=== PATIENT | female | born 1975 | race Caucasian/White ===

== ENCOUNTER 2017-01-21 12:09 | Emergency (ER) | payer MEDICARE, MEDICAID ==
[2017-01-21 15:01] VITALS: BP 150/90
--- NOTE | 2017-01-21 15:27 | UC ---
Respiratory Complaint HPI - HPI Summary HPI Summary: 50 yo female with a hx of htn and asthma presents with a greater than one month hx of nasal congestion and post nasal drip now with a 4-5 day hx of cough/wheezing and reliance on her rescue inhaler no f/c no n/v/d no CP no hx DM - History of Current Complaint Chief Complaint: UCGeneralIllness Stated Complaint: throat,sinuses,congestion Time Seen by Provider: 01/21/17 15:07 Hx Obtained From: Patient Hx Last Menstrual Period: 01/18/17 Onset/Duration: Gradual Onset, Lasting Weeks, Worse Since - past few days Timing: Constant Severity Initially: Mild Severity Currently: Moderate Pain Intensity: 3 Pain Scale Used: 0-10 Numeric Character: Cough: Nonproductive Aggravating Factors: Nothing Alleviating Factors: Nothing Associated Signs And Symptoms: Positive: Wheezing, URI, Nasal Congestion, Sinus Discomfort - Allergies/Home Medications Allergies/Adverse Reactions: Allergies Allergy/AdvReac Type Severity Reaction Status Date / Time Clindamycin Allergy Rash, Verified 01/21/17 14:55 breathing issues Doxycycline AdvReac GI Verified 01/21/17 14:55 environmental allergies Allergy See Comment Uncoded 01/21/17 14:55 Home Medications: Home Medications Amlodipine Besylate [Norvasc] 2.5 mg PO DAILY 01/21/17 [History Confirmed ] Pseudoephedrine-Guaifenesin [Mucinex D 60-600 mg] 1 tab PO BID PRN 01/21/17 [ History Confirmed 01/21/17] PMH/Surg Hx/FS Hx/Imm Hx Endocrine History Of: Reports: Thyroid Disease - Hypothyroidism Denies: Diabetes Cardiovascular History Of: Denies: Cardiac Disorders, Hypertension Respiratory History Of: Reports: Asthma, Bronchitis Denies: COPD GI/ History Of: Denies: Ulcer - Surgical History Surgical History: Yes Surgery Procedure, Year, and Place: Sinus, 2007, [facility]. Cholecystectomy, 2004, [facility]. T&A, 1986, [facility] - Family History Known Family History: Positive: Unknown - unknow MOMs side (her mom was adopted) , Hypertension, Diabetes Negative: Respiratory Disease - Social History Alcohol Use: None Substance Use Type: None Smoking Status (MU): Never Smoked Tobacco Review of Systems Constitutional: Negative Skin: Negative Eyes: Negative ENT: Nasal Discharge Respiratory: Cough Cardiovascular: Negative Gastrointestinal: Negative Genitourinary: Negative Motor: Negative Neurovascular: Negative Musculoskeletal: Negative Neurological: Negative Psychological: Negative All Other Systems Reviewed And Are Negative: Yes Physical Exam Triage Information Reviewed: Yes Appearance: Well-Appearing, No Pain Distress, Well-Nourished, Other: - BMI 66 Vital Signs: Initial Vital Signs Temp 98.3 F 01/21/17 14:48 Pulse 88 01/21/17 14:48 Resp 16 01/21/17 14:48 BP 150/90 01/21/17 14:48 Pulse Ox 100 01/21/17 14:48 Vital Signs Reviewed: Yes Eyes: Positive: Conjunctiva Clear ENT: Positive: Hearing grossly normal, Nasal congestion, Nasal drainage, TMs normal, Other: - bilateral max sinus tenderness. Negative: Tonsillar exudate, Trismus Neck exam: Normal Respiratory: Positive: Lungs clear, Normal breath sounds, No respiratory distress, No accessory muscle use, Other: - some wheezes with forced expiration Cardiovascular: Positive: RRR, No Murmur. Negative: Tachycardia, Bradycardia Musculoskeletal: Positive: ROM Intact Neurological: Positive: Alert, Muscle Tone Normal Psychological Exam: Normal Skin Exam: Normal UC Diagnostic Evaluation - Laboratory O2 Sat by Pulse Oximetry: 100 - normal/not hypoxic Respiratory Course/Dx - Differential Dx/Diagnosis Provider Diagnoses: acute bronchitis. acute sinusitis Discharge - Discharge Plan Condition: Stable Disposition: HOME Prescriptions: Cefuroxime Axetil [Ceftin 250 MG] 250 mg PO BID #20 tab Fluconazole 150 MG (NF) [Diflucan 150 mg (NF)] 150 mg PO ONCE #1 tab Prednisone [Deltasone] 40 mg PO DAILY #10 tab Patient Education Materials: Sinusitis (ED), Acute Bronchitis (ED) Referrals: MARKUS Oreilly [Primary Care Provider] - 1 Week (recheck bp in 1-2 weeks) Additional Instructions: recheck for new or worsening symptoms
== END 2017-01-21 15:33 | disposition home or self-care (01) ==
LOC: UCCORT 12:09
DX: J20.9 Acute bronchitis, unspecified (principal); J01.90 Acute sinusitis, unspecified; Z88.1 Allergy status to other antibiotic agents; Z90.49 Acquired absence of other specified parts of digestive tract
CPT/HCPCS: 99212; G0463

== ENCOUNTER 2017-04-05 14:25 | Emergency (ER) | payer MEDICARE, MEDICAID ==
--- NOTE | 2017-04-05 14:50 | UC ---
Abdominal Pain Female HPI - HPI Summary HPI Summary: 41 F with abd pain since 04/02/17. Pt can feel an umbilical hernia, a hard lump at her umbilicus. States it gives pain across her entire lower abd, and makes her nauseous. No vomiting. No fever. No urinary symptoms. Pt states she is not having intercourse with anyone and her LMP was 03/19/17 and was normal for her. Pt is undergoing evaluation with Dr. Reddy for obesity surgery. - History of Current Complaint Stated Complaint: ABD PAIN Time Seen by Provider: 04/05/17 14:48 Hx Obtained From: Patient Hx Last Menstrual Period: 03/07/16 ?: No Onset/Duration: Gradual Onset, Lasting Days, Still Present Timing: Constant Severity Initially: Moderate Pain Intensity: 7 Pain Scale Used: 0-10 Numeric Location: Other - umbilical and diffuse lower abd Radiates: No Character: Aching Aggravating Factor(s): Nothing Alleviating Factor(s): Nothing Associated Signs and Symptoms: Negative: Fever, Back Pain, Urinary Symptoms, Vaginal Bleeding, Vaginal Discharge, Nausea, Vomiting, Diarrhea - Risk Factors Ectopic Risk Factor: Negative Ovarian Torsion Risk Factor: Reproductive Age Allergies/Adverse Reactions: Allergies Allergy/AdvReac Type Severity Reaction Status Date / Time Clindamycin Allergy Rash, Verified 04/05/17 14:52 breathing issues Doxycycline AdvReac GI Verified 04/05/17 14:52 environmental allergies Allergy See Comment Uncoded 01/21/17 14:55 PMH/Surg Hx/FS Hx/Imm Hx Previously Healthy: No - morbid obesity GI/ History: Gall Bladder Disease - s/p kel - Surgical History Surgical History: Yes Surgery Procedure, Year, and Place: Sinus, 2007, [facility]. Cholecystectomy, 2004, [facility]. T&A, 1986, [facility] - Family History Known Family History: Positive: Unknown - unknow MOMs side (her mom was adopted) , Hypertension, Diabetes Negative: Respiratory Disease - Social History Lives: With Family Alcohol Use: None Substance Use Type: None Smoking Status (MU): Never Smoked Tobacco Review of Systems Constitutional: Negative Skin: Negative Eyes: Negative ENT: Negative Respiratory: Negative Cardiovascular: Negative Gastrointestinal: Abdominal Pain Genitourinary: Negative Motor: Negative Neurovascular: Negative Musculoskeletal: Negative Neurological: Negative Psychological: Negative All Other Systems Reviewed And Are Negative: Yes Physical Exam Triage Information Reviewed: Yes Appearance: Ill-Appearing, Pain Distress, Obese Vital Signs: elevated BP noted Vital Signs Reviewed: Yes ENT: Positive: Hearing grossly normal. Negative: Muffled/hoarse voice Neck: Positive: Supple Respiratory: Positive: Lungs clear, Normal breath sounds, No respiratory distress Cardiovascular: Positive: RRR, No Murmur, Pulses Normal, Brisk Capillary Refill Abdomen Description: Positive: Soft, Hernia @ - umbilicus, reducible, Other: - tender at umbilicus with mass protruding. Mass is reducible, but is painful on palp and protrudes even with pt in supine position with deep breaths. Negative : CVA Tenderness (R), CVA Tenderness (L), Distended, Guarding, McBurney's Point Tenderness, Peritoneal Signs, Pulsatile Mass Bowel Sounds: Positive: Present Musculoskeletal: Positive: Strength Intact, ROM Intact Neurological: Positive: Alert, Muscle Tone Normal Psychological Exam: Normal Skin Exam: Normal Abd Pain Female Course/Dx - Course Course Of Treatment: pt needs higher level of care for evaluation of painful, reducible umbilical hernia causing nausea. - Differential Dx/Diagnosis Differential Diagnosis: Bowel Obstruction, Other - hernia, strangulated hernia Provider Diagnoses: abdominal pain. morbid obesity. umbilical hernia Discharge - Discharge Plan Condition: Stable Disposition: AGAINST MEDICAL ADVICE Referrals: MARKUS Oreilly [Primary Care Provider] -
[2017-04-05 15:25] VITALS: BP 145/89
== END 2017-04-05 15:32 | disposition left against medical advice (07) ==
LOC: UCCORT 14:25
DX: R10.30 Lower abdominal pain, unspecified (principal); E66.01 Morbid (severe) obesity due to excess calories; K42.9 Umbilical hernia without obstruction or gangrene; Z88.1 Allergy status to other antibiotic agents
CPT/HCPCS: 81003; 99212; G0463

== ENCOUNTER 2017-04-05 16:27 | Emergency (ER) | payer MEDICARE, MEDICAID ==
[2017-04-05] MEDS ORDERED: NS 0.9% 1000 ML* 1,000 ML IV ONE (19:52)
[2017-04-05] MEDS ORDERED: Ondansetron INJ* 2 MG/ML VIAL IV ONE (19:52)
[2017-04-05 20:21] LABS: Urine Bacteria Absent (Absent); Urine Bilirubin Negative (Negative); Urine Glucose Negative (Negative); Urine Nitrite Negative (Negative)
[2017-04-05 20:34] LABS: Hematocrit 41 % (35-47); Hemoglobin 13.4 g/dl (12.0-16.0); Mean Corpuscular HGB Conc 33 g/dl (31-36); Mean Corpuscular Hemoglobin 27 pg (27-31); Mean Corpuscular Volume 84 fL (80-97); Mean Platelet Volume 9 um3 (7.4-10.4); Red Blood Count 4.88 10^6/ul (4.0-5.4); Red Cell Distribution Width 14 % (10.5-15); White Blood Count 9.8 10^3/ul (3.5-10.8)
[2017-04-05 20:50] LABS: ALT 13 U/L (7-52); AST 11 U/L (13-39); Albumin 3.6 g/dL (3.2-5.2); Alkaline Phosphatase 67 U/L (34-104); Anion Gap 8 mmol/L (2-11); BUN/Creatinine Ratio 9.1 (8-20); Blood Urea Nitrogen 7 mg/dL (6-24); C Reactive Protein 8.53 mg/L (< 5.00); CO2 Carbon Dioxide 26 mmol/L (22-32); Chloride 103 mmol/L (101-111); EGFR African American 106.8 (>60); Globulin 2.5 g/dL (2-4); Glucose 96 mg/dL (70-100); Lipase < 10 U/L (11.0-82.0); Potassium 3.6 mmol/L (3.5-5.0); Sodium 137 mmol/L (133-145); Total Protein 6.1 g/dL (6.4-8.9)
[2017-04-05] MEDS ORDERED: Iohexol 300* (CONTRAST) 10 ML SDV IV ONE (22:09)
--- NOTE | 2017-04-05 22:50 | RAD ---
Indication: Umbilical hernia. Contrast: Administered 150.0 ml of OMNIPAQUE 300 mgi/ml CT of the abdomen and pelvis was performed after oral and IV contrast administration. The lung bases demonstrate no pleural fluid, nodules or masses. Heart is of normal size without evidence of pericardial effusion. Liver is normal in size. No focal lesions or intrahepatic ductal dilatation is noted. Patient is status post cholecystectomy. The pancreas demonstrates no mass or pancreatic duct dilatation. The spleen is normal in size. No adrenal lesions are noted. The kidneys demonstrate no hydronephrosis. No focal lesions are noted. Aorta and inferior vena cava are unremarkable. No dilated loops of bowel are noted. Contrast is noted in the colon. No bowel obstruction is noted. Periumbilical hernia is noted containing omentum. No evidence of infiltration of fat is noted. No small bowel herniation is noted. No hernias are otherwise noted in the inguinal region. The [place] bladder is unremarkable. IMPRESSION: Periumbilical hernia containing fat and omentum without evidence of abscess. No other masses or fluid collections are noted. No evidence of bowel obstruction is noted.
[2017-04-05] MEDS ORDERED: Ondansetron ODT TAB* 4 MG PO ONE (23:30)
[2017-04-05] MEDS ORDERED: HYDROcodone/ACETAMIN 5-325 MG* 1 TAB PO ONE (23:30)
--- NOTE | 2017-04-05 23:36 | ED ---
Te Islas Alok, scribed for Jacqueline Brewer MD on 04/05/17 at 1940 . Abdominal Pain/Female - HPI Summary HPI Summary: 41F presents with suprapubic abd pain described as cramping radiating to the LLQ and RLQ for the past 4 days. Pt notes a hernia at her suprapubic region with pain. Pt also notes nausea for the past 4 days and diarrhea since today. Pt denies fever or dysuria. Her LMP was on 03/24/17. PMHx includes HTN, GERD, and hyperthyroid. PSHx includes cholecystectomy. - History of Current Complaint Chief Complaint: EDAbdPain Stated Complaint: HERNIA PAIN Time Seen by Provider: 04/05/17 19:12 Hx Obtained From: Patient Hx Last Menstrual Period: 03/07/16 ?: No Onset/Duration: Lasting Days, Still Present Timing: Constant Severity Initially: Moderate Severity Currently: Moderate Pain Intensity: 7 Pain Scale Used: 0-10 Numeric Location: Suprapubic Radiates: Yes Radiates to: LLQ, RLQ Character: Cramping Aggravating Factor(s): Nothing Alleviating Factor(s): Nothing Associated Signs and Symptoms: Positive: Nausea, Diarrhea. Negative: Fever, Urinary Symptoms, Vomiting Allergies/Adverse Reactions: Allergies Allergy/AdvReac Type Severity Reaction Status Date / Time Clindamycin Allergy Rash, Verified 04/05/17 14:52 breathing issues Doxycycline AdvReac GI Verified 04/05/17 14:52 environmental allergies Allergy See Comment Uncoded 01/21/17 14:55 PMH/Surg Hx/FS Hx/Imm Hx Endocrine/Hematology History: Reports: Hx Thyroid Disease Denies: Hx Diabetes Cardiovascular History: Reports: Hx Hypertension Respiratory History: Reports: Hx Asthma Denies: Hx Chronic Obstructive Pulmonary Disease (COPD) GI History: Denies: Hx Ulcer - Surgical History Surgery Procedure, Year, and Place: Sinus, 2007, [facility]. Cholecystectomy, 2004, [facility]. T&A, 1986, [facility] Infectious Disease History: No Infectious Disease History: Denies: Hx Clostridium Difficile, Hx Hepatitis, Hx Human Immunodeficiency Virus (HIV), Hx of Known/Suspected MRSA, Hx Shingles, Hx Tuberculosis, Hx Known/ Suspected VRE, Hx Known/Suspected VRSA, History Other Infectious Disease, Traveled Outside the [place] in Last 30 Days - Family History Known Family History: Positive: Hypertension, Diabetes Negative: Respiratory Disease - Social History Occupation: Employed Full-time Lives: With Family Alcohol Use: None Substance Use Type: Reports: None Smoking Status (MU): Never Smoked Tobacco Review of Systems Negative: Fever Positive: Abdominal Pain, Diarrhea, Nausea. Negative: Vomiting Negative: dysuria All Other Systems Reviewed And Are Negative: Yes Physical Exam Triage Information Reviewed: Yes Vital Signs On Initial Exam: Initial Vitals Temp Pulse Resp BP Pulse Ox 97.3 F 95 20 161/96 98 04/05/17 16:35 04/05/17 16:35 04/05/17 16:35 04/05/17 16:35 04/05/17 16:35 Vital Signs Reviewed: Yes Appearance: Positive: Well-Appearing, No Pain Distress Skin: Positive: Warm, Skin Color Reflects Adequate Perfusion, Dry Eyes: Positive: EOMI, YOHAN ENT: Positive: Pharynx normal, TMs normal Neck: Positive: Supple, Nontender Respiratory/Lung Sounds: Positive: Clear to Auscultation, Breath Sounds Present. Negative: Rales, Rhonchi, Wheezes Cardiovascular: Positive: RRR, Other - no gallop. Negative: Murmur, Rub Abdomen Description: Positive: Soft, Other: - diffuse abd pain Bowel Sounds: Positive: Present Musculoskeletal: Positive: Strength/ROM Intact. Negative: Edema Left, Edema Right Neurological: Positive: Sensory/Motor Intact, Alert, Oriented to Person Place, Time, CN Intact II-III Psychiatric: Positive: Affect/Mood Appropriate - Edie Coma Scale Coma Scale Total: 15 Diagnostics - Vital Signs Vital Signs Temp Pulse Resp BP Pulse Ox 04/05/17 18:03 98.3 F 92 20 140/100 97 04/05/17 16:38 97.6 F 89 20 161/96 100 04/05/17 16:35 97.3 F 95 20 161/96 98 - Laboratory Lab Results: Lab Results 04/05/17 04/05/17 04/05/17 Range/Units 20:01 20:01 20:27 WBC 9.8 (3.5-10.8) 10^3/ul RBC 4.88 (4.0-5.4) 10^6/ul Hgb 13.4 (12.0-16.0) g/dl Hct 41 (35-47) % MCV 84 (80-97) fL MCH 27 (27-31) pg MCHC 33 (31-36) g/dl RDW 14 (10.5-15) % Plt Count 408 (150-450) 10^3/ul MPV 9 (7.4-10.4) um3 Neut % (Auto) 61.0 (38-83) % Lymph % (Auto) 27.1 (25-47) % Tillman % (Auto) 7.9 (1-9) % Eos % (Auto) 2.8 (0-6) % Baso % (Auto) 1.2 (0-2) % Absolute Neuts (auto) 5.9 (1.5-7.7) 10^3/ul Absolute Lymphs (auto) 2.6 (1.0-4.8) 10^3/ul Absolute Monos (auto) 0.8 (0-0.8) 10^3/ul Absolute Eos (auto) 0.3 (0-0.6) 10^3/ul Absolute Basos (auto) 0.1 (0-0.2) 10^3/ul Absolute Nucleated RBC 0 10^3/ul Nucleated RBC % 0 Sodium (133-145) mmol/L Potassium (3.5-5.0) mmol/L Chloride (101-111) mmol/L Carbon Dioxide (22-32) mmol/L Anion Gap (2-11) mmol/L BUN (6-24) mg/dL Creatinine (0.51-0.95) mg/dL Est GFR ( Amer) (>60) Est GFR (Non-Af Amer) (>60) BUN/Creatinine Ratio (8-20) Glucose (70-100) mg/dL Lactic Acid 1.6 (0.5-2.0) mmol/L Calcium (8.6-10.3) mg/dL Total Bilirubin (0.2-1.0) mg/dL AST (13-39) U/L ALT (7-52) U/L Alkaline Phosphatase (34-104) U/L C-Reactive Protein (< 5.00) mg/L Total Protein (6.4-8.9) g/dL Albumin (3.2-5.2) g/dL Globulin (2-4) g/dL Albumin/Globulin Ratio (1-3) Lipase (11.0-82.0) U/L Urine Color Straw Urine Appearance Clear Urine pH 6.0 (5-9) Ur Specific [place] 1.003 L (1.010-1.030) Urine Protein Negative (Negative) Urine Ketones Negative (Negative) Urine Blood Negative (Negative) Urine Nitrate Negative (Negative) Urine Bilirubin Negative (Negative) Urine Urobilinogen Negative (Negative) Ur Leukocyte Esterase Negative (Negative) Urine WBC (Auto) Trace(0-5/hpf) (Absent) Urine RBC (Auto) Trace(0-2/hpf) (Absent) Ur Squamous Epith Cells Present H (Absent) Urine Bacteria Absent (Absent) Urine Glucose Negative (Negative) 04/05/17 Range/Units 20:27 WBC (3.5-10.8) 10^3/ul RBC (4.0-5.4) 10^6/ul Hgb (12.0-16.0) g/dl Hct (35-47) % MCV (80-97) fL MCH (27-31) pg MCHC (31-36) g/dl RDW (10.5-15) % Plt Count (150-450) 10^3/ul MPV (7.4-10.4) um3 Neut % (Auto) (38-83) % Lymph % (Auto) (25-47) % Tillman % (Auto) (1-9) % Eos % (Auto) (0-6) % Baso % (Auto) (0-2) % Absolute Neuts (auto) (1.5-7.7) 10^3/ul Absolute Lymphs (auto) (1.0-4.8) 10^3/ul Absolute Monos (auto) (0-0.8) 10^3/ul Absolute Eos (auto) (0-0.6) 10^3/ul Absolute Basos (auto) (0-0.2) 10^3/ul Absolute Nucleated RBC 10^3/ul Nucleated RBC % Sodium 137 (133-145) mmol/L Potassium 3.6 (3.5-5.0) mmol/L Chloride 103 (101-111) mmol/L Carbon Dioxide 26 (22-32) mmol/L Anion Gap 8 (2-11) mmol/L BUN 7 (6-24) mg/dL Creatinine 0.77 (0.51-0.95) mg/dL Est GFR ( Amer) 106.8 (>60) Est GFR (Non-Af Amer) 83.0 (>60) BUN/Creatinine Ratio 9.1 (8-20) Glucose 96 (70-100) mg/dL Lactic Acid (0.5-2.0) mmol/L Calcium 9.0 (8.6-10.3) mg/dL Total Bilirubin 0.60 (0.2-1.0) mg/dL AST 11 L (13-39) U/L ALT 13 (7-52) U/L Alkaline Phosphatase 67 (34-104) U/L C-Reactive Protein 8.53 H (< 5.00) mg/L Total Protein 6.1 L (6.4-8.9) g/dL Albumin 3.6 (3.2-5.2) g/dL Globulin 2.5 (2-4) g/dL Albumin/Globulin Ratio 1.4 (1-3) Lipase < 10 L (11.0-82.0) U/L Urine Color Urine Appearance Urine pH (5-9) Ur Specific [place] (1.010-1.030) Urine Protein (Negative) Urine Ketones (Negative) Urine Blood (Negative) Urine Nitrate (Negative) Urine Bilirubin (Negative) Urine Urobilinogen (Negative) Ur Leukocyte Esterase (Negative) Urine WBC (Auto) (Absent) Urine RBC (Auto) (Absent) Ur Squamous Epith Cells (Absent) Urine Bacteria (Absent) Urine Glucose (Negative) Result Diagrams: 04/05/17 20:27 04/05/17 20:27 Lab Statement: Any lab studies that have been ordered have been reviewed, and results considered in the medical decision making process. - CT abd/pel CT CT Interpretation: Positive (See Comments) - IMPRESSION: Periumbilical hernia containing fat and omentum without evidence of abscess. No other masses or fluid collections are noted. No evidence of bowel obstruction is noted. CT Interpretation Completed By: Radiologist Abdominal Pain Fem Course/Dx - Course Course Of Treatment: 41 yo morbidly obese pt with diffuse abd pain and new umbilical hernia, labs neg and ct shows reducible hernia followup with surgery as an outpt - Diagnoses Provider Diagnoses: Umbilical hernia, Abdominal pain Discharge - Discharge Plan Condition: Stable Disposition: HOME Prescriptions: HYDROcodone/ACETAMIN 5-325 MG* [[place] 5-325 TAB*] 1 tab PO Q8H PRN #7 tab MDD 3 PRN Reason: Pain HYDROcodone/ACETAMIN 5-325 MG* [[place] 5-325 TAB*] 1 tab PO Q8H PRN #7 tab MDD 3 PRN Reason: Pain Ondansetron ODT TAB* [Zofran 4 MG Odt TAB*] 4 mg PO Q8H PRN #14 tab.odt PRN Reason: Nausea Referrals: Renan EnglishRenan [Primary Care Provider] - The documentation as recorded by the Te brooks Alok accurately reflects the service I personally performed and the decisions made by , Jacqueline Brewer MD.
[2017-04-05 23:46] VITALS: BP 149/88
== END 2017-04-05 23:45 | disposition home or self-care (01) ==
LOC: ED 16:27
DX: K42.9 Umbilical hernia without obstruction or gangrene (principal); R10.84 Generalized abdominal pain; R11.0 Nausea; R19.7 Diarrhea, unspecified
CPT/HCPCS: 36415; 74177; 80053; 81003; 83605; 83690; 85025; 86140; 96374; 99283; A9270-GY; J2405; Q9967

== ENCOUNTER 2017-07-03 15:05 | Emergency (ER) | payer MEDICARE, MEDICAID ==
[2017-07-03 15:33] VITALS: BP 150/75
--- NOTE | 2017-07-03 15:54 | UC ---
Complaint Female HPI - HPI Summary HPI Summary: urinary burning and frequency x 2 days no fever, no chills, no flank pain - History Of Current Complaint Chief Complaint: UCGU Stated Complaint: URINARY Time Seen by Provider: 07/03/17 15:41 Hx Obtained From: Patient Hx Last Menstrual Period: 06/26/17 ?: No Onset/Duration: Gradual Onset, Lasting Days - 2, Still Present Timing: Constant Severity Initially: Moderate Severity Currently: Moderate Character: Burning Aggravating Factor(s): Urination Alleviating Factor(s): Nothing Associated Signs And Symptoms: Negative: Fever, Back Pain, Vaginal Bleeding/ Discharge, Vaginal Discharge, Nausea, Vomiting(# Of Episodes =), Genital Swelling, Genital Blisters, Retained [place] Body (Specify) - Allergies/Home Medications Allergies/Adverse Reactions: Allergies Allergy/AdvReac Type Severity Reaction Status Date / Time Clindamycin Allergy Rash, Verified 07/03/17 15:27 breathing issues Doxycycline AdvReac GI Verified 07/03/17 15:27 environmental allergies Allergy See Comment Uncoded 07/03/17 15:27 PMH/Surg Hx/FS Hx/Imm Hx Endocrine History: Hypothyroidism Cardiovascular History: Hypertension - Surgical History Surgical History: Yes Surgery Procedure, Year, and Place: Sinus, 2007, [facility]. Cholecystectomy, 2004, [facility]. T&A, 1986, [facility] - Family History Known Family History: Positive: Unknown - unknow MOMs side (her mom was adopted) , Hypertension, Diabetes Negative: Respiratory Disease - Social History Alcohol Use: None Substance Use Type: None Smoking Status (MU): Never Smoked Tobacco Review of Systems Constitutional: Negative Skin: Negative Eyes: Negative ENT: Negative Respiratory: Negative Genitourinary: Dysuria, Frequency, Urgency All Other Systems Reviewed And Are Negative: Yes Physical Exam Triage Information Reviewed: Yes Appearance: Well-Appearing, No Pain Distress, Obese Vital Signs: Initial Vital Signs Temp 98.1 F 07/03/17 15:29 Pulse 91 07/03/17 15:29 Resp 20 07/03/17 15:29 BP 150/75 07/03/17 15:29 Pulse Ox 100 07/03/17 15:29 Vital Signs Reviewed: Yes Eyes: Positive: Conjunctiva Clear ENT: Positive: Normal ENT inspection, Hearing grossly normal, Pharynx normal Neck: Positive: Supple, Nontender Respiratory: Positive: Chest non-tender, Lungs clear, Normal breath sounds Cardiovascular: Positive: RRR, No Murmur, Pulses Normal Abdominal Exam: Normal Abdomen Description: Positive: Nontender, Soft. Negative: CVA Tenderness (R), CVA Tenderness (L), Distended, Guarding Bowel Sounds: Positive: Present Skin Exam: Normal Complaint Female Dx - Differential Dx/Diagnosis Provider Diagnoses: UTI Discharge - Discharge Plan Condition: Stable Disposition: HOME Prescriptions: Sulfamethox/Trimethoprim DS* [Bactrim DS 800/160 TAB*] 1 tab PO BID #14 tab Patient Education Materials: Urinary Tract Infection in Women (ED) Referrals: MARKUS Oreilly [Primary Care Provider] - If Needed
--- NOTE | 2017-07-06 07:10 | UC ---
Progress - Progress Note Progress Note: notify pt of results if not better should get rechecked may continue antibiotic until finished
== END 2017-07-03 15:58 | disposition home or self-care (01) ==
LOC: UCCORT 15:05
DX: N39.0 Urinary tract infection, site not specified (principal); I10 Essential (primary) hypertension; E03.9 Hypothyroidism, unspecified; Z88.3 Allergy status to other anti-infective agents
CPT/HCPCS: 81003; 87086; 99212; G0463

== ENCOUNTER 2017-11-03 10:56 | Emergency (ER) | payer MEDICARE, MEDICAID ==
[2017-11-03 11:46] VITALS: BP 156/85
--- NOTE | 2017-11-03 12:11 | UC ---
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 Pt c/o 2-3 weeks of "feeling cruddy", sinus pain/pressure, productive cough w/ green phelgm, congestion and felt fever/chills. States sx have gotten worse last 24 hrs. Taking sudafed, mucinex and ibuprofen prn. " -has had sinus suregry. has had many sinus infections and sx are consistent. unable to take home temp. +asthma hx. used to need daily steroid but was d/c'd as no longer needed. has nebulizer at home. only needs alb prn. no known fevers. amox works well for her. requests diflucan for common cause. - History of Current Complaint Chief Complaint: UCRespiratory Stated Complaint: COUGH Time Seen by Provider: 11/03/17 11:42 Hx Last Menstrual Period: 06/26/17 - Allergies/Home Medications Allergies/Adverse Reactions: Allergies Allergy/AdvReac Type Severity Reaction Status Date / Time Clindamycin Allergy Rash, Verified 11/03/17 11:39 breathing issues Doxycycline AdvReac GI Verified 11/03/17 11:39 environmental allergies Allergy See Comment Uncoded 11/03/17 11:39 Home Medications: Home Medications Famotidine TAB* [Pepcid 20 MG TAB*] 1 tab DAILY 11/03/17 [History Confirmed 04/15] PMH/Surg Hx/FS Hx/Imm Hx Previously Healthy: Yes Endocrine History: Hypothyroidism Respiratory History: Asthma - Surgical History Surgical History: Yes Surgery Procedure, Year, and Place: Sinus, 2007, [facility]. Cholecystectomy, 2004, [facility]. T&A, 1986, [facility] - Family History Known Family History: Positive: Unknown - unknow MOMs side (her mom was adopted) , Hypertension, Diabetes Negative: Respiratory Disease - Social History Alcohol Use: None Substance Use Type: None Smoking Status (MU): Never Smoked Tobacco - Immunization History Most Recent Influenza Vaccination: 2017 Review of Systems Constitutional: Chills Skin: Negative Eyes: Negative ENT: Sore Throat, Ear Ache, Nasal Discharge, Sinus Congestion, Sinus Pain/ Tenderness Respiratory: Cough, Other - wheezing Cardiovascular: Negative Gastrointestinal: Negative Genitourinary: Negative Motor: Negative Neurovascular: Negative Musculoskeletal: Negative Neurological: Negative Psychological: Negative Is Patient Immunocompromised?: No All Other Systems Reviewed And Are Negative: Yes Physical Exam Triage Information Reviewed: Yes Appearance: Well-Appearing, No Pain Distress, Ill-Appearing - mildly Vital Signs: Initial Vital Signs Temp 98.2 F 11/03/17 11:41 Pulse 81 11/03/17 11:41 Resp 18 11/03/17 11:41 BP 156/85 11/03/17 11:41 Pulse Ox 100 11/03/17 11:41 Vital Signs Reviewed: Yes Eye Exam: Normal ENT: Positive: Pharyngeal erythema - +PND, Nasal congestion, TMs normal, Sinus tenderness. Negative: TM bulging, TM dull, TM red, Tonsillar exudate Dental Exam: Normal Neck exam: Normal Neck: Positive: Supple, Nontender, No Lymphadenopathy Respiratory: Positive: No respiratory distress, No accessory muscle use, Decreased breath sounds, Wheezing - b/l expiratory bases. Negative: Crackles, Rhonchi, Stridor Cardiovascular Exam: Normal Cardiovascular: Positive: RRR, No Murmur, Pulses Normal Abdomen Description: Positive: Nontender, Soft Musculoskeletal Exam: Normal Neurological Exam: Normal Psychological Exam: Normal Skin Exam: Normal UC Diagnostic Evaluation - Laboratory O2 Sat by Pulse Oximetry: 100 Respiratory Course/Dx - Course Course Of Treatment: BP elevated today b/c of illness and also taking cold medication. - Differential Dx/Diagnosis Differential Diagnosis/HQI/PQRI: Asthma, Bronchitis, Sinusitis Provider Diagnoses: Sinusitis, asthmatic bronchitis Discharge - Discharge Plan Condition: Stable Disposition: HOME Prescriptions: Albuterol 2.5MG/3ML (0.083%)* [Ventolin 2.5 MG/3 ML NEB.JULY*] 2.5 mg INH Q4H PRN #1 box PRN Reason: cough or wheezing Albuterol 2.5MG/3ML (0.083%)* [Ventolin 2.5 MG/3 ML NEB.JULY*] 2.5 mg INH Q4H #1 neb.july Amoxicillin PO (*) [Amoxicillin 875 MG (*)] 875 mg PO BID #20 tab Fluconazole [Diflucan] 150 mg PO ONCE #1 tab Methylprednisolone [Medrol Dosepak 4 MG*] 4 mg PO DAILY #1 jacob Patient Education Materials: Asthma (ED), Sinusitis (ED), Acute Bronchitis (ED) Referrals: MARKUS Oreilly [Primary Care Provider] - 5 Days Additional Instructions: -Make sure to take a probiotic daily while on antibiotics to help prevent a potential complication of antibiotic use called c diff. Some well known brands that can be found OTC are florastor, align and colon health. Make sure to complete the entire prescription unless advised otherwise by your health care provider. -Make sure to take a probiotic daily while on antibiotics to help prevent a potential complication of antibiotic use called c diff. Some well known brands that can be found OTC are florastor, align and colon health. Make sure to complete the entire prescription unless advised otherwise by your health care provider.
== END 2017-11-03 12:28 | disposition home or self-care (01) ==
LOC: UCCORT 10:56
DX: J32.9 Chronic sinusitis, unspecified (principal); J45.909 Unspecified asthma, uncomplicated
CPT/HCPCS: 99212; G0463

== ENCOUNTER 2017-12-07 14:20 | Emergency (ER) | payer MEDICARE, MEDICAID ==
[2017-12-07 16:36] VITALS: BP 128/86
[2017-12-07] MEDS ORDERED: Albuterol 2.5 MG/3 ML NEB.SOL* (0.083%) INH ONE (16:46)
[2017-12-07] MEDS ORDERED: Ipratropium 0.5MG/2.5ML NEB* 0.5 MG/2.5 ML NEB.SOLN INH ONE (16:46)
--- NOTE | 2017-12-07 17:00 | UC ---
Respiratory Complaint HPI - HPI Summary HPI Summary: 42 yo female with progressively worsening cough and wheeze x 1 week hx asthma sputum is green has had chills no cp or sob no n/v/d - History of Current Complaint Chief Complaint: UCGeneralIllness Stated Complaint: SINUS, UPPER RESP COMPLAINTS Time Seen by Provider: 12/07/17 16:35 Hx Obtained From: Patient Hx Last Menstrual Period: 12/01/17 Onset/Duration: Sudden Onset, Lasting Days Timing: Constant Severity Initially: Mild Severity Currently: Moderate Pain Intensity: 0 Pain Scale Used: 0-10 Numeric Character: Cough: Productive, Sputum Description: - green Aggravating Factors: Allergens, Recumbent Position Alleviating Factors: Bronchodilator Associated Signs And Symptoms: Positive: Wheezing, Nasal Congestion, Sinus Discomfort Related History: Similar Episode/Dx as: - bronchitis - Allergies/Home Medications Allergies/Adverse Reactions: Allergies Allergy/AdvReac Type Severity Reaction Status Date / Time clindamycin Allergy See Comment Verified 12/07/17 16:25 doxycycline Allergy GI Upset Verified 12/07/17 16:25 environmental allergies Allergy See Comment Uncoded 12/07/17 16:25 Home Medications: Home Medications Guaifenesin/Dextromethorphan [Mucinex Dm Maximum Streng 60-1200 mg] 1 tab PO BID PRN 12/07/17 [History Confirmed 12/07/17] Pseudoephedrine HCL ER TAB* [Sudafed 12 Hour*] 120 mg PO BID 12/07/17 [History Confirmed 12/07/17] PMH/Surg Hx/FS Hx/Imm Hx Previously Healthy: Yes Respiratory History: Asthma, Bronchitis, Pneumonia - Surgical History Surgical History: Yes Surgery Procedure, Year, and Place: Sinus, 2007, [facility]. Cholecystectomy, 2004, [facility]. T&A, 1986, [facility] - Family History Known Family History: Positive: Unknown - unknow MOMs side (her mom was adopted) , Hypertension, Diabetes Negative: Respiratory Disease - Social History Alcohol Use: Rare Substance Use Type: None Smoking Status (MU): Never Smoked Tobacco - Immunization History Most Recent Influenza Vaccination: 2017 Review of Systems Constitutional: Chills, Fatigue Skin: Negative Eyes: Negative ENT: Negative Respiratory: Cough Cardiovascular: Negative Gastrointestinal: Negative Genitourinary: Negative Motor: Negative Neurovascular: Negative Musculoskeletal: Negative Neurological: Negative Psychological: Negative Is Patient Immunocompromised?: No All Other Systems Reviewed And Are Negative: Yes Physical Exam Triage Information Reviewed: Yes Appearance: Well-Appearing, No Pain Distress, Other: - BMI 63 Vital Signs: Initial Vital Signs Temp 97.9 F 12/07/17 16:30 Pulse 100 12/07/17 16:30 Resp 14 12/07/17 16:30 BP 128/86 12/07/17 16:30 Pulse Ox 100 12/07/17 16:30 Eyes: Positive: Conjunctiva Clear ENT: Positive: Hearing grossly normal, Uvula midline. Negative: Nasal congestion, Nasal drainage, Tonsillar swelling, Tonsillar exudate, Muffled voice , Hoarse voice Neck: Positive: Supple, Nontender, No Lymphadenopathy Respiratory: Positive: No respiratory distress, No accessory muscle use, Wheezing Cardiovascular: Positive: RRR, No Murmur Musculoskeletal: Positive: ROM Intact, No Edema Neurological: Positive: Alert Psychological Exam: Normal Skin Exam: Normal UC Diagnostic Evaluation - Laboratory O2 Sat by Pulse Oximetry: 100 - normal/not hypoxic - Radiology Xray Interpretation: No Acute Changes Radiology Interpretation Completed By: Radiologist Re-Evaluation - Re-Evaluation First Eval Re-Evaluation Time: 17:33 Change: Improved - better air movement/no wheezes Respiratory Course/Dx - Differential Dx/Diagnosis Provider Diagnoses: acute bronchitis with bronchospasm Discharge - Discharge Plan Condition: Stable Disposition: HOME Prescriptions: Albuterol 2.5MG/3ML (0.083%)* [Ventolin 2.5 MG/3 ML NEB.JULY*] 2.5 mg INH QID PRN #1 neb.july PRN Reason: Wheezing Amoxicillin PO (*) [Amoxicillin 875 MG (*)] 875 mg PO BID #20 tab predniSONE [Deltasone] 40 mg PO DAILY #10 tab Patient Education Materials: Acute Bronchitis (ED) Referrals: MARKUS Oreilly [Primary Care Provider] - 5 Days
--- NOTE | 2017-12-07 17:11 | RAD ---
HISTORY: Cough, wheezing COMPARISONS: December 25, 2015 VIEWS: 4: Frontal dual-energy and lateral views of the chest. FINDINGS: CARDIOMEDIASTINAL SILHOUETTE: The cardiomediastinal silhouette is normal. MORENO: The moreno are normal. PLEURA: The costophrenic angles are sharp. No pleural abnormalities are noted. LUNG PARENCHYMA: The lungs are clear. ABDOMEN: The upper abdomen is clear. There is no subphrenic gas. BONES AND SOFT TISSUES: Degenerative changes are noted OTHER: None. IMPRESSION: NO ACTIVE CARDIOPULMONARY DISEASE.
== END 2017-12-07 17:42 | disposition home or self-care (01) ==
LOC: UCCORT 14:20
DX: J20.9 Acute bronchitis, unspecified (principal); J30.2 Other seasonal allergic rhinitis; Z90.49 Acquired absence of other specified parts of digestive tract; Z88.1 Allergy status to other antibiotic agents
CPT/HCPCS: 71046; 99212; G0463; J7644

== ENCOUNTER 2018-01-16 12:49 | Emergency (ER) | payer MEDICARE, MEDICAID ==
[2018-01-16 13:45] VITALS: BP 145/88
--- NOTE | 2018-01-16 14:25 | UC ---
Hand/Wrist HPI - HPI Summary HPI Summary: Pt presents with c/o bilateral wrist pain, right shoulder pain and right hip discomfort after slipping on ice this morning at 0930. Pt states she is able to ambulate and has increased tenderness and stiffness in right shoulder and right wrist. - History Of Current Complaint Chief Complaint: UCUpperExtremity Stated Complaint: CATARINA WRIST PAIN - S/P FALL THIS AM Time Seen by Provider: 01/16/18 13:42 Hx Obtained From: Patient Hx Last Menstrual Period: 12/27/17 ?: No Onset/Duration: Sudden Onset, Still Present Severity Initially: Mild Severity Currently: Moderate Pain Intensity: 5 Character Of Pain: Dull, Aching Aggravating Factor(s): Movement Alleviating Factor(s): Rest Related History: Dominant Hand Right - Risk Factors Compartment Syndrome Risk Factors: Pain - Allergies/Home Medications Allergies/Adverse Reactions: Allergies Allergy/AdvReac Type Severity Reaction Status Date / Time clindamycin Allergy See Comment Verified 12/07/17 16:25 doxycycline Allergy GI Upset Verified 12/07/17 16:25 environmental allergies Allergy See Comment Uncoded 12/07/17 16:25 PMH/Surg Hx/FS Hx/Imm Hx Previously Healthy: Yes - obese - Surgical History Surgical History: Yes Surgery Procedure, Year, and Place: Sinus, 2007, [facility]. Cholecystectomy, 2004, [facility]. T&A, 1986, [facility] - Family History Known Family History: Positive: Unknown - unknow MOMs side (her mom was adopted) , Hypertension, Diabetes Negative: Respiratory Disease - Social History Occupation: Employed Full-time Lives: With Family Alcohol Use: Rare Substance Use Type: None Smoking Status (MU): Never Smoked Tobacco Have You Smoked in the Last Year: No Household Exposure Type: Cigarettes - Immunization History Most Recent Influenza Vaccination: 2017 Review of Systems Constitutional: Negative Skin: Negative Eyes: Negative ENT: Negative Respiratory: Negative Cardiovascular: Negative Gastrointestinal: Negative Genitourinary: Negative Motor: Negative Neurovascular: Negative Musculoskeletal: Arthralgia, Myalgia Neurological: Negative Psychological: Negative Is Patient Immunocompromised?: No All Other Systems Reviewed And Are Negative: Yes Physical Exam Triage Information Reviewed: Yes Appearance: Well-Appearing Vital Signs: Initial Vital Signs Temp 98.8 F 01/16/18 13:38 Pulse 102 01/16/18 13:38 Resp 20 03/21/18 13:38 BP 145/88 01/16/18 13:38 Pulse Ox 99 01/16/18 13:38 Vital Signs Reviewed: Yes Eye Exam: Normal ENT Exam: Normal Neck exam: Normal Respiratory Exam: Normal Cardiovascular Exam: Normal Musculoskeletal Exam: Normal Musculoskeletal: Positive: Strength Intact, Other: Neurological Exam: Normal Psychological Exam: Normal Skin Exam: Normal Diagnostics - Radiology No standard instances Radiology Interpretation Completed By: Radiologist - Negative for fracture right wrist and right shoulder Hand/Wrist Course/Dx - Differential Dx/Diagnosis Differential Diagnosis/HQI/PQRI: Contusion, Fracture, Sprain, Strain Provider Diagnoses: contusion right wrist. contusion right shoulder. contusion left wrist. contusion right hip Discharge - Sign-Out/Discharge Documenting (check all that apply): Discharge - Discharge Plan Condition: Stable Disposition: HOME Prescriptions: Cyclobenzaprine TAB* [Flexeril 10 MG TAB*] 10 mg PO TID PRN #15 tab PRN Reason: Pain Patient Education Materials: Contusion in Adults (ED) Referrals: MARKUS Oreilly [Primary Care Provider] - If Needed Additional Instructions: Please follow up with your PCP or return to clinic as needed. - Billing Disposition and Condition Condition: STABLE Disposition: HOME
--- NOTE | 2018-01-16 14:47 | RAD ---
HISTORY: Right shoulder pain, trauma COMPARISONS: January 22, 2005 VIEWS: 4, Frontal internal rotation, external rotation, outlet, and axillary views of the right shoulder FINDINGS: BONE DENSITY: Normal. BONES: There is no displaced fracture. JOINTS: There is no arthropathy. ALIGNMENT: There is no dislocation. SOFT TISSUES: Unremarkable. OTHER FINDINGS: None. IMPRESSION: NO ACUTE OSSEOUS INJURY. IF SYMPTOMS PERSIST, RECOMMEND REPEAT IMAGING.
--- NOTE | 2018-01-16 14:47 | RAD ---
HISTORY: Fall on outstretched hand, right wrist pain COMPARISONS: None VIEWS: 3, Frontal, lateral, and oblique views of the right wrist FINDINGS: BONE DENSITY: Normal. BONES: There is no displaced fracture. JOINTS: There is no arthropathy. ALIGNMENT: There is no dislocation. SOFT TISSUES: Unremarkable. OTHER FINDINGS: None. IMPRESSION: NO ACUTE OSSEOUS INJURY. IF SYMPTOMS PERSIST, RECOMMEND REPEAT IMAGING.
== END 2018-01-16 15:02 | disposition home or self-care (01) ==
LOC: UCCORT 12:49
DX: S60.211A Contusion of right wrist, initial encounter (principal); S60.212A Contusion of left wrist, initial encounter; S40.011A Contusion of right shoulder, initial encounter; S70.01XA Contusion of right hip, initial encounter; W00.0XXA Fall on same level due to ice and snow, initial encounter; Y93.01 Activity, walking, marching and hiking; Y92.9 Unspecified place or not applicable; Z88.1 Allergy status to other antibiotic agents
CPT/HCPCS: 99212; G0463

== ENCOUNTER 2018-09-29 13:08 | Emergency (ER) | payer MEDICARE, MEDICAID ==
[2018-09-29 13:58] VITALS: BP 134/84
--- NOTE | 2018-09-29 14:14 | UC ---
Throat Pain/Nasal Sree HPI - HPI Summary HPI Summary: Patient has increased sinus pressure under theye, cough and dripping down the throat, feells feverish and chilled - History of Current Complaint Chief Complaint: UCGeneralIllness Stated Complaint: STUFFY NOSE,CONGESTION,COUGH Time Seen by Provider: 09/29/18 13:58 Hx Obtained From: Patient Hx Last Menstrual Period: 09/26/18 ?: No Onset/Duration: Sudden Onset, Lasting Days Severity: Mild Pain Intensity: 0 Cough: Productive Associated Signs & Symptoms: Positive: Dysphagia, Sinus Discomfort, Nasal Discharge - Allergies/Home Medications Allergies/Adverse Reactions: Allergies Allergy/AdvReac Type Severity Reaction Status Date / Time clindamycin Allergy See Comment Verified 09/29/18 13:57 doxycycline Allergy GI Upset Verified 09/29/18 13:57 environmental allergies Allergy See Comment Uncoded 09/29/18 13:57 PMH/Surg Hx/FS Hx/Imm Hx Previously Healthy: Yes - Surgical History Surgical History: Yes Surgery Procedure, Year, and Place: Sinus, 2007, [facility]. Cholecystectomy, 2004, [facility]. T&A, 1986, [facility] - Family History Known Family History: Positive: Unknown - unknow MOMs side (her mom was adopted) , Hypertension, Diabetes Negative: Respiratory Disease - Social History Alcohol Use: Rare Substance Use Type: None Smoking Status (MU): Never Smoked Tobacco Have You Smoked in the Last Year: No Household Exposure Type: Cigarettes - Immunization History Most Recent Influenza Vaccination: 2016 Review of Systems All Other Systems Reviewed And Are Negative: Yes Constitutional: Positive: Chills, Fatigue Skin: Positive: Negative Eyes: Positive: Negative ENT: Positive: Sore Throat, Ear Ache, Nasal Discharge, Sinus Pain/Tenderness Respiratory: Positive: Cough Cardiovascular: Positive: Negative Gastrointestinal: Positive: Negative Genitourinary: Positive: Negative Motor: Positive: Negative Neurovascular: Positive: Negative Musculoskeletal: Positive: Negative Neurological: Positive: Headache Psychological: Positive: Negative Is Patient Immunocompromised?: No Physical Exam Triage Information Reviewed: Yes Appearance: Well-Nourished, Ill-Appearing, Pain Distress Vital Signs: Initial Vital Signs Temp 97.8 F 09/29/18 13:54 Pulse 90 09/29/18 13:54 Resp 16 09/29/18 13:54 BP 134/84 09/29/18 13:54 Pulse Ox 99 09/29/18 13:54 Vital Signs Reviewed: Yes Eye Exam: Normal ENT: Positive: Pharyngeal erythema - with PND, Nasal congestion, Nasal drainage , TM bulging, TM dull, Sinus tenderness Dental Exam: Normal Neck exam: Normal Respiratory Exam: Normal Respiratory: Positive: Chest non-tender, Normal breath sounds, No respiratory distress, Wheezing, Inspiration Cardiovascular Exam: Normal Cardiovascular: Positive: RRR, No Murmur, Pulses Normal Abdominal Exam: Normal Abdomen Description: Positive: Nontender, No Organomegaly, Soft Bowel Sounds: Positive: Present Musculoskeletal Exam: Normal Neurological Exam: Normal Psychological Exam: Normal Skin Exam: Normal Throat Pain/Nasal Course/Dx - Course Course Of Treatment: hx obtained, exam performed ,meds reviewed, treated for sinusitis - Differential Dx/Diagnosis Differential Diagnosis/HQI/PQRI: Otitis Media, Pharyngitis, Sinusitis, URI Provider Diagnosis: Sinusitis Discharge - Sign-Out/Discharge Documenting (check all that apply): Patient Departure All imaging exams completed and their final reports reviewed: No Studies - Discharge Plan Condition: Stable Disposition: HOME Prescriptions: Albuterol HFA INHALER* [Ventolin HFA Inhaler*] 1 puff INH Q4H PRN #1 mdi PRN Reason: Wheezing Amoxicillin PO (*) [Amoxicillin 875 MG (*)] 875 mg PO BID #20 tab Fluconazole [Diflucan 150 MG (NF)] 150 mg PO ONCE #1 tab Patient Education Materials: Sinusitis (ED) Referrals: Adelita Martinez MD [Primary Care Provider] - Additional Instructions: 1. take the medication as prescribed. 2. Increase fluid intake and get plenty of rest. 3. Follow up if not improving - Billing Disposition and Condition Condition: STABLE Disposition: Home
== END 2018-09-29 14:20 | disposition home or self-care (01) ==
LOC: UCCORT 13:08
DX: J32.9 Chronic sinusitis, unspecified (principal); Z88.1 Allergy status to other antibiotic agents
CPT/HCPCS: 99212; G0463

== ENCOUNTER 2019-08-31 14:56 | Emergency (ER) | payer MEDICARE, MEDICAID ==
[2019-08-31 15:48] VITALS: BP 148/88
--- NOTE | 2019-08-31 15:58 | UC ---
Back Pain HPI - HPI Summary HPI Summary: tripped and fell on carpeting 3 days ago--foosh injury with fracture to left hand---muscles in back and neck are tight and uncomfortable. - History of Current Complaint Chief Complaint: UCLowerExtremity Stated Complaint: MUSCLE SPASMS Time Seen by Provider: 08/31/19 15:51 Hx Obtained From: Patient Hx Last Menstrual Period: 08/13/19 ?: No Onset/Duration: Sudden Onset, Lasting Days - 3, Worse Since - today Timing: Constant Pain Intensity: 7 Pain Scale Used: 0-10 Numeric Back Pain: Is Diffuse - neck and upper back Character: Spasmodic, Stiffness Aggravating Factor(s): Movement Alleviating Factor(s): Nothing Associated Signs And Symptoms: Positive: Negative - Allergies/Home Medications Allergies/Adverse Reactions: Allergies Allergy/AdvReac Type Severity Reaction Status Date / Time clindamycin Allergy See Comment Verified 08/31/19 15:48 doxycycline Allergy GI Upset Verified 08/31/19 15:48 environmental allergies Allergy See Comment Uncoded 08/31/19 15:48 Home Medications: Home Medications Hydrochlorothiazide TAB* [Hydrodiuril TAB*] 12.5 mg PO DAILY 08/31/19 [History Confirmed 08/31/19] PMH/Surg Hx/FS Hx/Imm Hx Previously Healthy: No Endocrine History: Hypothyroidism Cardiovascular History: Hypertension GI/ History: Gastroesophageal Reflux Psychological History: Anxiety, Post Traumatic Stress Disorder - Surgical History Surgical History: Yes Surgery Procedure, Year, and Place: Sinus, 2007, [facility]. Cholecystectomy, 2004, [facility]. T&A, 1986, [facility] - Family History Known Family History: Positive: Hypertension, Diabetes Negative: Respiratory Disease - Social History Occupation: Disabled Lives: Alone Alcohol Use: Rare Substance Use Type: None Smoking Status (MU): Never Smoked Tobacco Have You Smoked in the Last Year: No Household Exposure Type: Cigarettes - Immunization History Most Recent Influenza Vaccination: 2017 Review of Systems All Other Systems Reviewed And Are Negative: Yes Constitutional: Positive: Negative Skin: Positive: Negative Eyes: Positive: Negative ENT: Positive: Negative Respiratory: Positive: Negative Cardiovascular: Positive: Negative Gastrointestinal: Positive: Negative Genitourinary: Positive: Negative Motor: Positive: Negative Neurovascular: Positive: Negative Musculoskeletal: Positive: Myalgia - neck and back lateral aspects Neurological: Positive: Negative Psychological: Positive: Negative Is Patient Immunocompromised?: No Physical Exam Triage Information Reviewed: Yes Appearance: Well-Appearing, Pain Distress - mild, Obese Vital Signs: Initial Vital Signs Temp 98.2 F 08/31/19 15:44 Pulse 108 08/31/19 15:44 Resp 16 08/31/19 15:44 BP 148/88 08/31/19 15:44 Pulse Ox 99 08/31/19 15:44 Vital Signs Reviewed: Yes Eye Exam: Normal Eyes: Positive: Conjunctiva Clear ENT Exam: Normal ENT: Positive: Normal ENT inspection, Hearing grossly normal. Negative: Trismus , Muffled voice, Hoarse voice Dental Exam: Normal Neck exam: Normal Neck: Positive: Supple, Nontender, No Lymphadenopathy Respiratory Exam: Normal Respiratory: Positive: Chest non-tender, Lungs clear, Normal breath sounds, No respiratory distress, No accessory muscle use Cardiovascular Exam: Normal Cardiovascular: Positive: RRR, No Murmur, Pulses Normal, Brisk Capillary Refill Musculoskeletal Exam: Normal Musculoskeletal: Positive: Strength Intact, ROM Intact, No Edema, Other: - no sherri pain all in lateral aspects of neck and back Neurological Exam: Normal Neurological: Positive: Alert, Muscle Tone Normal Psychological Exam: Normal Skin Exam: Normal Back Pain Course/Dx - Course Course Of Treatment: add flexeril Prn--also [facility] to [facility] patient trauma follow with pcp this week - Differential Dx/Diagnosis Provider Diagnosis: Chronic post-traumatic stress disorder (PTSD), Muscle spasm of back, Hypertension Discharge ED - Sign-Out/Discharge Documenting (check all that apply): Patient Departure All imaging exams completed and their final reports reviewed: No Studies - Discharge Plan Condition: Stable Disposition: HOME Prescriptions: Cyclobenzaprine TAB* [Flexeril 10 MG TAB*] 10 mg PO TID PRN #15 tab PRN Reason: muscle spasm Patient Education Materials: Hypertension (ED), Muscle Spasm (ED) Referrals: [facility] [Outside] Adelita Martinez MD [Primary Care Provider] - 1 Week - Billing Disposition and Condition Condition: STABLE Disposition: Home
== END 2019-08-31 16:05 | disposition home or self-care (01) ==
LOC: UCCORT 14:56
DX: F43.12 Post-traumatic stress disorder, chronic (principal); I10 Essential (primary) hypertension; M62.830 Muscle spasm of back; Z88.1 Allergy status to other antibiotic agents; Z88.8 Allergy status to other drugs, medicaments and biological substances; Z91.09 Other allergy status, other than to drugs and biological substances; Z82.49 Family history of ischemic heart disease and other diseases of the circulatory system; W01.0XXA Fall on same level from slipping, tripping and stumbling without subsequent striking against object, initial encounter; Y92.9 Unspecified place or not applicable
CPT/HCPCS: 99212; G0463

== ENCOUNTER 2019-12-06 12:37 | Emergency (ER) | payer MEDICARE, MEDICAID ==
--- OUTSIDE RECORDS SUMMARY | 2019-12-06 13:25 | XMS REPORT | Summary of Care ---
:1975 Author Organization [facility] Address [address] [place] [address] Care Team Providers Name Role Phone Nik Overton Primary Care Provider Reason for Visit Reason Comments Follow-up Encounter Details Date Type Department Care Team Description 11/26/2019 Office Visit [facility] Rheumatology Lety Cardoza's phenomenon [address] [facility] MD [place] [address] [address] [place] (Primary Dx) [phone] [address] Floor [address] [place] [id number] [phone] Allergies Active Allergy Reactions Severity Noted Date Comments Aspartame High 04/23/2017 Clindamycin/Lincomycin High 04/23/2017 Fish-In Food 11/26/2019 Lamotrigine High 04/23/2017 Flavoring Agent High 04/23/2017 documented as of this encounter (statuses as of 11/27/2019) Medications Medication Sig Dispensed Refills Start Date End Date Status diphenhydrAMINE (BENADRYL) Take 25 mg by 0 Active 25 mg capsuleIndications: mouth every 6 1-2 every 6 hours as (six) hours as needed. needed for ItchingIndicat ions: 1-2 every 6 hours as needed. ibuprofen (ADVIL,MOTRIN) Take 200 mg by 0 Active 200 MG tablet mouth every 6 (six) hours as needed for Pain clonazePAM (KLONOPIN) 1 MG Take 1 mg by 0 Active tablet mouth Four times daily as needed for Anxiety albuterol (PROVENTIL Inhale 2 puffs 0 Active HFA;VENTOLIN HFA) 108 (90 into the lungs Base) MCG/ACT inhaler every 4 (four) hours as needed for Wheezing levothyroxine (SYNTHROID, Take 75 mcg by 0 Active LEVOTHROID) 75 MCG tablet mouth Daily cetirizine (ZYRTEC) 10 MG Take 10 mg by 0 Active tablet mouth daily Cyanocobalamin (VITAMIN Place 500 mcg 0 Active B12 SL) under the tongue daily omeprazole (PRILOSEC) 20 Take 20 mg by 0 Active MG capsule mouth daily Pseudoephedrine HCl Take 120 mg by 0 Active (SUDAFED 12 HOUR PO) mouth every 12 (twelve) hours Cholecalciferol (VITAMIN Take 5,000 0 Active D3) 5000 units TABS Units by mouth daily hydrochlorothiazide Take 12.5 mg 0 Active (MICROZIDE) 12.5 MG by mouth daily capsule amlodipine (NORVASC) 2.5 Take 5 mg by 0 Active MG tablet mouth daily documented as of this encounter (statuses as of 11/27/2019) Active Problems No known active problemsdocumented as of this encounter (statuses as of 2019) Social History Tobacco Use Types Packs/Day Years Used Date Never Smoker Smokeless Tobacco: Never Used Tobacco Cessation: Counseling Given: No Alcohol Use Drinks/Week oz/Week Comments No Sex Assigned at Date Recorded Not on file Job Start Date Occupation Industry Not on file Not on file Not on file Travel History Travel Start Travel End No recent travel history available. documented as of this encounter Last Filed Vital Signs Vital Sign Reading Time Taken Comments Blood Pressure 145/91 11/26/2019 11:46 AM EST Pulse 107 11/26/2019 11:46 AM EST Temperature 37.2 11/26/2019 11:46 AM EST C (98.9 F) Respiratory Rate 16 11/26/2019 11:46 AM EST Oxygen Saturation 96% 11/26/2019 11:46 AM EST Inhaled Oxygen Concentration - - Weight 180.5 kg (398 lb) 11/26/2019 11:46 AM EST Height 162.6 cm (5' 4") 11/26/2019 11:46 AM EST Body Mass Index 68.32 11/26/2019 11:46 AM EST documented in this encounter Progress Notes Santi Cardoza MD - 11/26/2019 11:45 AM EST Subjective: Patient ID: Shai Palacio is a 44 y.o. female. She has primary Raynaud phenomenon. She is currently on amlodipine 5 mg per day. She was last satish year ago. At that time, her disease was controlled. Since then, she has been doing well. Deniesany significant worsening of the Raynaud's. Her rheumatologic review of systems continues to be otherwise unremarkable. Her musculoskeletal exam does not show any synovitis. ASSESSMENT: Raynaud phenomenon, primary, seems controlled on amlodipine. PLAN: 1. Continue medications without changes. 2. Followup appointment in 1 year. RACIEL Gibbons has a past medical history of Allergic rhinitis, Anxiety, Anxiety disorder, Asthma, B12 deficiency, Bipolar 1 disorder, Chronic back pain, Chronic sciatica, Chronic sinusitis, Headache, Hypertension, Iron deficiency, Menorrhagia, Morbid obesity, PTSD (post-traumatic stress disorder), Raynauds syndrome, Suicide attempt, Thyroid disease, Umbilical hernia, and Vitamin D deficiency. Shai has a past surgical history that includes deviated nose septum (10/2007) ; Tonsillectomy; and Cholecystectomy. Her family history includes Alcohol abuse in her brother, father, and mother; Arthritis in her brother and father; Asthma in her father and mother; Cancer in her father; Hypertension in her brother andfather; Lupus in an other family member; Osteoporosis in her mother; Seizures in her father; Stroke in her father. Shai reports that she has never smoked. She has never used smokeless tobacco. She reports that shedoes not drink alcohol. No history on file for drug. Shai has a current medication list which includes the following prescription(s) : albuterol, amlodipine, cetirizine, vitamin d3, clonazepam, cyanocobalamin, diphenhydramine, hydrochlorothiazide, ibuprofen, levothyroxine, omeprazole, and pseudoephedrine hcl. Shai is allergic to aspartame; clindamycin/lincomycin; lamictal [lamotrigine]; stevia glycerite extract [flavoring agent]; and fish-in food. Review of Systems Constitutional: Negative. HENT: Negative. Eyes: Negative. Respiratory: Negative. Cardiovascular: Negative. Gastrointestinal: Negative. Endocrine: Negative. Genitourinary: Negative. Musculoskeletal: Negative for arthralgias and joint swelling. Skin: Negative. Allergic/Immunologic: Negative. Neurological: Negative. Hematological: Negative. Psychiatric/Behavioral: Negative. Objective: Physical Exam Vitals signs reviewed. Constitutional: Appearance: She is well-developed. HENT: Head: Normocephalic and atraumatic. Eyes: Conjunctiva/sclera: Conjunctivae normal. Neck: Thyroid: No thyromegaly. Trachea: No tracheal deviation. Cardiovascular: Rate and Rhythm: Normal rate and regular rhythm. Pulmonary: Effort: Pulmonary effort is normal. No respiratory distress. Musculoskeletal: General: No swelling or tenderness. Skin: General: Skin is warm and dry. Neurological: Mental Status: She is alert and oriented to person, place, and time. documented in this encounter Plan of Treatment Date Type Specialty Care Team Description 11/23/2020 Office Visit Rheumatology Santi Cardoza MD [address] [place] [address] [address] [place] [address] [phone] Health Maintenance Due Date Last Done Comments MMR Vaccines (1 of 1 - Standard 1977 series) Varicella Vaccines (1 of 2 - 1977 2-dose childhood series) DTaP,Tdap,and Td Vaccines (1 - 1983 Tdap) HIV Screening 1989 Cervical Cancer Screening 5 years 1997 Influenza Vaccine 07/29/2019 Pneumococcal Vaccine: 65+ Years (1 2041 of 2 - PCV13) HIB Vaccines Aged Out No longer eligible based on patient's age to complete this topic Hepatitis A Vaccines Aged Out No longer eligible based on patient's age to complete this topic Hepatitis B Vaccines Aged Out No longer eligible based on patient's age to complete this topic IPV Vaccines Aged Out No longer eligible based on patient's age to complete this topic Pneumococcal Vaccine: Pediatrics Aged Out No longer eligible based on (0 to 5 Years) and At-Risk patient's age to complete this Patients (6 to 64 Years) topic documented as of this encounter Results Not on filedocumented in this encounter Visit Diagnoses Diagnosis Raynaud's phenomenon without gangrene - Primary documented in this encounter
--- OUTSIDE RECORDS SUMMARY | 2019-12-06 13:25 | XMS REPORT | Continuity of Care Document ---
:1975 External Reference #:[id number] Author Name Sydnie Brown NP (transmitted by agent of provider Lori Thibodeaux) Address [address] [place] [address] Care Team Providers Name Role Phone Adelita Martinez MD - Family Medicine Care Team Information Am[employer]ia Solution Preparer [phone] Ella Galan MD Care Team Information [employer] Solution Preparer [phone] Problems Description No Information Available Social History Type Date Description Comments Sex Unknown Allergies, Adverse Reactions, Alerts Active Allergies Reaction Severity Comments Date Clindamycin 10/16/2019 Fish Oils 10/16/2019 Inactive Allergies NKDA 08/30/2007 Medications Active Medications SIG Qnty Indications Ordering Date Provider Zyrtec 1 po qd prn Unknown 10mg Chewtabs Amlodipine Besylate 1 by mouth Unknown 5mg Tablets every day Hydrochlorothiazide 1 by mouth Unknown 12.5mg Tablets every day Levothyroxine Sodium 1 by mouth Unknown 75mcg Tablets every day Immunizations Description No Information Available Vital Signs Date Vital Result Comment 10/16/2019 10:52am Weight 410.00 lb Height 63 inches 5'3" BMI (Body Mass Index) 72.6 kg/m2 BP Systolic 150 mmHg BP Diastolic 91 mmHg Heart Rate 105 /min O2 % BldC Oximetry 99 % Body Temperature 98.4 F [place] Score 1 Neck Circumference in inches 18.25 Pain Level 0 01/31/2010 3:22pm Weight 378.00 lb Height 64 inches 5'4" BMI (Body Mass Index) 64.9 kg/m2 BP Systolic 164 mmHg BP Diastolic 98 mmHg Heart Rate 104 /min Body Temperature 97.9 F Results Description No Information Available Procedures Date Code Description Status 11/24/2013 441512456 Bone Mineral Density Test Completed 11/24/2013 993735133 Diabetic Retinal Eye Exam Completed 11/24/2013 550571028 Diabetic Foot Exam Completed Medical Devices Description No Information Available Encounters Description No Information Available Assessments Description No Information Available Plan of Treatment No Information Available Functional Status Description No Information Available Mental Status Description No Information Available Referrals Description No Information Available
[2019-12-06 13:37] VITALS: BP 149/109
--- NOTE | 2019-12-06 13:42 | UC ---
Throat Pain/Nasal Sree HPI - HPI Summary HPI Summary: Pt presents with c/o nasal congestion, cough, VANESSA, sinus pressure and pain X 1 week. Pt has hx of sinusitis. - History of Current Complaint Chief Complaint: UCGeneralIllness Stated Complaint: CONGESTION EARS Time Seen by Provider: 12/06/19 13:27 Hx Obtained From: Patient Hx Last Menstrual Period: 08/13/19 ?: No Onset/Duration: Gradual Onset, Lasting Days, Still Present Severity: Moderate Pain Intensity: 7 Associated Signs & Symptoms: Positive: Sinus Discomfort - Epiglottits Risk Factors Epiglottis Risk Factors: Negative - Allergies/Home Medications Allergies/Adverse Reactions: Allergies Allergy/AdvReac Type Severity Reaction Status Date / Time clindamycin Allergy See Comment Verified 12/06/19 13:32 doxycycline Allergy GI Upset Verified 12/06/19 13:32 Fish Containing Products Allergy Anaphylatic Verified 12/06/19 13:32 Shock environmental allergies Allergy See Comment Uncoded 12/06/19 13:32 Home Medications: Home Medications Pregabalin 100 mg CAP (*) [Lyrica 100 mg CAP (*)] 100 mg PO TID PRN 12/06/19 [ History Confirmed 12/06/19] PMH/Surg Hx/FS Hx/Imm Hx Previously Healthy: Yes Respiratory History: Asthma - Surgical History Surgical History: Yes Surgery Procedure, Year, and Place: Sinus, 2007, [facility]. Cholecystectomy, 2004, [facility]. T&A, 1986, [facility] - Family History Known Family History: Positive: Hypertension, Diabetes Negative: Respiratory Disease - Social History Occupation: Disabled Lives: With Family Alcohol Use: None Substance Use Type: None Smoking Status (MU): Never Smoked Tobacco Have You Smoked in the Last Year: No Household Exposure Type: Cigarettes - Immunization History Most Recent Influenza Vaccination: 2017 Review of Systems All Other Systems Reviewed And Are Negative: Yes Constitutional: Positive: Chills, Fatigue Skin: Positive: Negative Eyes: Positive: Negative ENT: Positive: Sinus Congestion, Sinus Pain/Tenderness Respiratory: Positive: Cough Cardiovascular: Positive: Negative Gastrointestinal: Positive: Negative Genitourinary: Positive: Negative Motor: Positive: Negative Neurovascular: Positive: Negative Musculoskeletal: Positive: Myalgia Neurological: Positive: Headache Psychological: Positive: Negative Is Patient Immunocompromised?: No Physical Exam Triage Information Reviewed: Yes Appearance: Ill-Appearing, Obese Vital Signs: Initial Vital Signs Temp 98.1 F 12/06/19 13:33 Pulse 86 12/06/19 13:33 Resp 24 12/06/19 13:33 BP 149/109 12/06/19 13:33 Pulse Ox 98 12/06/19 13:33 Vital Signs Reviewed: Yes Eye Exam: Normal ENT: Positive: Nasal congestion, Sinus tenderness Dental Exam: Normal Neck exam: Normal Respiratory Exam: Normal Cardiovascular Exam: Normal Musculoskeletal Exam: Normal Neurological Exam: Normal Psychological Exam: Normal Skin Exam: Normal Throat Pain/Nasal Course/Dx - Differential Dx/Diagnosis Differential Diagnosis/HQI/PQRI: Influenza, Sinusitis, URI Provider Diagnosis: Sinusitis Discharge ED - Sign-Out/Discharge Documenting (check all that apply): Patient Departure All imaging exams completed and their final reports reviewed: No Studies - Discharge Plan Condition: Stable Disposition: HOME Prescriptions: Amoxicillin PO (*) [Amoxicillin 875 MG (*)] 875 mg PO Q12H #20 tab Fluconazole 150 MG TAB* [Diflucan 150 MG TAB*] 150 mg PO DAILY #2 tablet predniSONE 10 mg TAB [Deltasone 10 MG TAB*] 30 mg PO DAILY #18 tab Patient Education Materials: Sinusitis (ED) Referrals: Adelita Martinez MD [Primary Care Provider] - If Needed - Billing Disposition and Condition Condition: STABLE Disposition: Home
== END 2019-12-06 13:50 | disposition home or self-care (01) ==
LOC: UCCORT 12:37 → RADMED 12:37
DX: J32.9 Chronic sinusitis, unspecified (principal); J45.909 Unspecified asthma, uncomplicated; Z91.09 Other allergy status, other than to drugs and biological substances; Z88.1 Allergy status to other antibiotic agents; Z91.013 Allergy to seafood
CPT/HCPCS: 99212; G0463

== ENCOUNTER 2019-12-30 14:05 | Emergency (ER) | payer MEDICARE, MEDICAID ==
--- OUTSIDE RECORDS SUMMARY | 2019-12-30 14:40 | XMS REPORT | Continuity of Care Document ---
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 Problems Active Problems Provider Date Closed fracture of metatarsal bone Gadiel Hallman MD, FACS Onset: 2011 After[facility] For Healing Traumatic Gadiel Hallman MD, FACS Onset: 08/09/2012 Fracture Of Other Bone Fracture therapy follow-up Gadiel Hallman MD, FACS Onset: 11/21/2012 Social History Type Date Description Comments Sex Unknown Tobacco Use Start: Unknown Never Smoked Cigarettes ETOH Use 09/04/2019 Uses Alcohol Daily ETOH Use Uses Alcohol Daily occasionally Tobacco Use Start: Unknown Patient denies history of smoking Smoking Status Reviewed: 12/24/19 Patient denies history of smoking Allergies, Adverse Reactions, Alerts Active Allergies Reaction Severity Comments Date Pollen 06/21/2012 Mold 06/21/2012 Environmental 06/21/2012 Clindamycin 11/21/2012 Seafood throat closes 09/04/2019 Medications Active Medications SIG Qnty Indications Ordering Date Provider Albuterol Sulfate Albuterol Sulfate (2.5 1units Unknown 08/21/20 MG/3ML) 0.083% 19 (2.5mg/3ML) 0.083% Inhalation Nebulization Nebulizer Solution Hydrochlorothiazide Hydrochlorothiazide 90caps Unknown 10/23/20 12.5mg 12.5MG Capsules 18 Capsules Albuterol Sulfate HFA Proair HFA 108 (90 Unknown 01/02/20 Base) mcg/Act 17 108(90Base) mcg/Act Inhalation Aerosol Aerosol Solution [facility] High-Potency Vitamin D3 1000 Unit Unknown 05/12/20 Vitamin D Oral Tablet 15 1000Unit Tablets Cetirizine HCL Cetirizine HCL 10 MG Unknown 09/16/20 10mg Tablets Oral Tablet 14 Ibuprofen Ibuprofen 200 MG Oral Unknown 01/14/20 200mg Tablets Tablet 11 Sudafed 12 Hour as directed prn Unknown 120mg 00 Tablets ER 12HR Azelastine HCL Unknown 137mcg/[place] 00 Solution Fluticasone Propionate 1 puff bid Unknown 00 50mcg/Act Suspension Amlodipine Besylate TK 1 T PO qd Unknown 5mg 00 Tablets Cyclobenzaprine HCL TK 1 T PO tid PRF Unknown 10mg Muscle Spasm 00 Tablets Pregabalin as directed prn Unknown 100mg Capsules 00 Synthroid TK 1 T PO qd Unknown 75mcg Tablets 00 Immunizations Description No Information Available Vital Signs Date Vital Result Comment 12/24/2019 9:37am BP Systolic Sitting Left Arm 135 mmHg BP Diastolic Sitting Left Arm 82 mmHg Heart Rate 102 /min 10/06/2019 1:56pm BP Systolic 135 mmHg BP Diastolic 90 mmHg Body Temperature 97.4 F Heart Rate 98 /min O2 % BldC Oximetry 99 % Results Test Acquired Date Facility Test Result H/L Range Note Xray 12/24[facility]MP, Hand, LT, < pending> [address] [facility] Complete (min [address] [place] [address] view) [phone] Procedures Date Code Description Status 12/24/2019 21811 Radiology, Hand: Minimum Three Views Completed 10/06/2019 96506 Radiology, Hand: Minimum Three Views Completed 10/06/2019 97626 Radiology, Hand: Minimum Three Views Completed 10/06/2019 34242 Radiology, Wrist Complete Completed 10/06/2019 58816 Radiology, Wrist Complete Completed 09/18/2019 69532 Radiology, Hand: Minimum Three Views Completed 09/04/2019 66092 Radiology, Hand: Minimum Three Views Completed 09/04/2019 05211 Radiology, Hand: Minimum Three Views Completed 09/04/2019 43436 FX Metacarpal closed single w/o manipulation Completed Medical Devices Description No Information Available Encounters Type Date Location Provider Dx Diagnosis Office Visit 12/24/2019 Orthopaedic Office Nubia Dsouza, S62.303A Unsp fracture of 9:30a third metacarpal bone, left hand, init Assessments Date Code Description Provider 12/24/2019 S62.303A Unspecified fracture of third metacarpal bone, Nubia Dsouza MD left hand, initial encounter for closed fracture 10/06/2019 M25.532 Pain in left wrist Nubia Dsouza MD 10/06/2019 S62.303D Unspecified fracture of third metacarpal bone, Nubia Dsouza MD left hand, subsequent encounter for fracture with routine healing 10/06/2019 S62.303A Unsp fracture of third metacarpal bone, left Nubia Dsouza MD hand, init 09/18/2019 S62.303D Unspecified fracture of third metacarpal bone, Nubia Dsouza MD left hand, subsequent encounter for fracture with routine healing 09/18/2019 S62.303A Unsp fracture of third metacarpal bone, left Nubia Dsouza MD hand, init 09/04/2019 M79.642 Pain in left hand Nubia Dsouza MD 09/04/2019 S62.303A Unspecified fracture of third metacarpal bone, Nubia Dsouza MD left hand, initial encounter for closed fracture 09/04/2019 W19.xxxA Unspecified fall, initial encounter Nubia Dsouza MD Plan of Treatment 12/24/2019 - Nubia Dsouza MDS62.303A Unspecified fracture of third metacarpal bone, left hand, initial encounter for closed fractureNew Therapy: Physical/Occupational Therapy Functional Status Description No Information Available Mental Status Description No Information Available Referrals Description No Information Available
[2019-12-30 14:53] VITALS: BP 133/97
--- NOTE | 2019-12-30 14:59 | UC ---
Skin Complaint HPI - HPI Summary HPI Summary: 44-year-old female presenting with "possible shingles" on her left buttock x3 days. Patient states the areas itchy and somewhat tender. States she tries to not scratch the area. Patient states she is concerned for shingles because she had them on 11/24/2019 on her right hip. She is unsure of drainage but noted scant blood on her underwear yesterday. Denies fever and chills. Denies nausea and vomiting. Does note that she "has been using a new soap down there. " - History of Current Complaint Chief Complaint: UCSkin Stated Complaint: SKIN CONCERN Hx Obtained From: Patient Hx Last Menstrual Period: 12/04/2019 Pain Intensity: 7 Pain Scale Used: 0-10 Numeric - Allergy/Home Medications Allergies/Adverse Reactions: Allergies Allergy/AdvReac Type Severity Reaction Status Date / Time clindamycin Allergy See Comment Verified 12/30/19 14:44 doxycycline Allergy GI Upset Verified 12/30/19 14:44 Fish Containing Products Allergy Anaphylatic Verified 12/30/19 14:44 Shock cephalexin AdvReac Vomiting Verified 12/30/19 15:18 environmental allergies Allergy See Comment Uncoded 12/30/19 14:44 Home Medications: Home Medications Cetirizine* [ZyrTEC 10 MG TAB*] 10 mg PO QAM 10/30/12 [History Confirmed ] Levothyroxine TAB* [Synthroid 25 MCG TAB*] 75 mcg PO QAM 07/22/14 [History Confirmed 12/30/19] Amlodipine Besylate [Amlodipine 2.5 mg tab] 5 mg PO DAILY 01/21/17 [History Confirmed 12/30/19] Famotidine TAB* [Pepcid 20 MG TAB*] 1 tab PO DAILY PRN 11/03/17 [History Confirmed 12/30/19] Albuterol HFA INHALER* [Ventolin HFA Inhaler*] 1 puff INH Q4H PRN #1 mdi [Rx Confirmed 12/30/19] Hydrochlorothiazide TAB* [Hydrodiuril TAB*] 12.5 mg PO DAILY 08/31/19 [History Confirmed 12/30/19] Pregabalin 100 mg CAP (*) [Lyrica 100 mg CAP (*)] 100 mg PO TID PRN 12/06/19 [ History Confirmed 12/30/19] Cephalexin CAP* [Keflex CAP*] 500 mg PO TID #15 cap 12/30/19 [Rx] Fluconazole 150 MG TAB* [Diflucan 150 MG TAB*] 150 mg PO ONCE PRN #1 tablet 01/15 [Rx] Pseudoephedrine HCL ER TAB* [Sudafed 12 Hour*] 120 mg PO BID PRN 12/30/19 [ History Confirmed 12/30/19] Sulfamethox/Trimethoprim DS* [Bactrim DS 800/160 TAB*] 1 tab PO BID #10 tab 01/15 [Rx] PMH/Surg Hx/FS Hx/Imm Hx - Surgical History Surgical History: Yes Surgery Procedure, Year, and Place: Sinus, 2007, [facility]. Cholecystectomy, 2004, [facility]. T&A, 1986, [facility] - Family History Known Family History: Positive: Hypertension, Diabetes Negative: Respiratory Disease - Social History Alcohol Use: Rare Substance Use Type: None Smoking Status (MU): Never Smoked Tobacco Have You Smoked in the Last Year: No Household Exposure Type: Cigarettes - Immunization History Most Recent Influenza Vaccination: 2017 Review of Systems All Other Systems Reviewed And Are Negative: Yes Constitutional: Positive: Negative Skin: Positive: Rash - left buttock Respiratory: Positive: Negative Cardiovascular: Positive: Negative Gastrointestinal: Positive: Negative Musculoskeletal: Positive: Negative Neurological/Mental Status: Positive: Negative Physical Exam - Summary Physical Exam Summary: Vital Signs Reviewed: Yes A+Ox3, no distress, obese Eyes: Conjunctiva Clear ENT: Hearing grossly normal neck: supple Respiratory: Positive: No respiratory distress, No accessory muscle use Cardiovascular: skin color reflect adequate perfusion Musculoskeletal Exam: HERNANDEZ x 4 without difficulty Neurological: Positive: Alert, ambulatory without difficulty Psychological: Positive: age appropriate behavior Skin: Positive: multiple papules on mildly erythematous base that appear to be scratched open, one lesion with surrounding erythema and 1mm pustule in center with small amount of red streaking, no fluctuance, no drainage or active bleeding Vital Signs: Initial Vital Signs Temp 98.9 F 12/30/19 14:48 Pulse 122 12/30/19 14:48 Resp 18 12/30/19 14:48 BP 133/97 12/30/19 14:48 Pulse Ox 97 12/30/19 14:48 Course/Dx - Course Course Of Treatment: Discussed likely irritant dermatitis that has started to become infected from scratching. I instructed to discontinue use of new soap and refrain from scratching. I initially prescribed keflex but patient states she is intolerant so I sent bactrim instead. Patient also requested diflucan in case of yeast infection from antibiotics. I instructed to follow up with pcp or dermatology for new or persistent symptoms. Patient voiced understanding and agreed with treatment plan. - Differential Diagnoses - Skin Complaint Differential Diagnoses: Contact Dermatitis, Eczema - Diagnoses Provider Diagnosis: Cellulitis of left buttock, Contact dermatitis Discharge ED - Sign-Out/Discharge Documenting (check all that apply): Patient Departure All imaging exams completed and their final reports reviewed: No Studies - Discharge Plan Condition: Stable Disposition: HOME Prescriptions: Cephalexin CAP* [Keflex CAP*] 500 mg PO TID #15 cap Fluconazole 150 MG TAB* [Diflucan 150 MG TAB*] 150 mg PO ONCE PRN #1 tablet PRN Reason: Itching Sulfamethox/Trimethoprim DS* [Bactrim DS 800/160 TAB*] 1 tab PO BID #10 tab Patient Education Materials: Contact Dermatitis (ED), Cellulitis (ED) Referrals: Jon Landa MD [Medical Doctor] - If Needed Adelita Martinez MD [Primary Care Provider] - If Needed Additional Instructions: Discontinue use of your new soap. Keep the area clean and dry and refrain from scratching. Take keflex as prescribed to prevent worsening infection. Take diflucan if you experience symptoms of yeast infection. Follow up with your primary care provider or the dermatology referral listed below if symptoms worsen or persist. - Billing Disposition and Condition Condition: STABLE Disposition: Home - Attestation Statements Provider Attestation: This patient was not seen by me. I was available for consult. Chart reviewed. ODT
== END 2019-12-30 15:19 | disposition home or self-care (01) ==
LOC: UCCORT 14:05
DX: L03.317 Cellulitis of buttock (principal); L25.9 Unspecified contact dermatitis, unspecified cause; Z88.1 Allergy status to other antibiotic agents; Z91.013 Allergy to seafood; Z91.09 Other allergy status, other than to drugs and biological substances; Z79.899 Other long term (current) drug therapy
CPT/HCPCS: 99212; G0463

== ENCOUNTER 2020-01-01 09:04 | Emergency (ER) | payer MEDICARE, MEDICAID ==
[2020-01-01 10:28] VITALS: BP 127/79
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
== END 2020-01-01 11:02 | disposition home or self-care (01) ==
LOC: UCCORT 09:04
DX: L01.03 Bullous impetigo (principal); Z88.1 Allergy status to other antibiotic agents; Z91.013 Allergy to seafood
CPT/HCPCS: 99212; G0463

== ENCOUNTER 2020-01-17 18:53 | Emergency (ER) | payer MEDICARE, MEDICAID ==
[2020-01-17 19:30] VITALS: BP 142/73
[2020-01-17 19:41] LABS: Influenza A Molecular Negative (Negative); Influenza B Molecular Negative (Negative)
--- NOTE | 2020-01-17 19:48 | UC ---
Respiratory Complaint HPI - HPI Summary HPI Summary: 44-year-old female with history of asthma presents with 5-6 day history of subjective fever, nasal congestion, sinus pressure, sore throat, occasionall productive cough for green sputum, shortness of breath, and occasional wheezing. States has been using her albuterol nebulizer or inhaler every 4-6 hours. No known contact with persons isolated for or diagnosed with COVID-19 however did travel to [employer], [place] 01/01-01/04. Patient completed a course of doxycycline for a skin infection on 01/11/2020. She is unsure if it was a 7 or 10 day course. Denies ear pain, dysphagia, chest pain, palpitations, abdominal pain, nausea, vomiting, or diarrhea. - History of Current Complaint Chief Complaint: UCGeneralIllness Stated Complaint: FLU LIKE SYMPTOMS, EAR COMPLAINT Time Seen by Provider: 01/17/20 19:14 Hx Obtained From: Patient Hx Last Menstrual Period: 01/02/20 Pain Intensity: 5 - Allergies/Home Medications Allergies/Adverse Reactions: Allergies Allergy/AdvReac Type Severity Reaction Status Date / Time clindamycin Allergy See Comment Verified 01/17/20 19:11 doxycycline Allergy GI Upset Verified 01/17/20 19:11 Fish Containing Products Allergy Anaphylatic Verified 01/17/20 19:11 Shock cephalexin AdvReac Vomiting, Verified 01/17/20 19:11 skin "peeling off" Home Medications: Home Medications Cetirizine* [ZyrTEC 10 MG TAB*] 10 mg PO QAM 10/30/12 [History Confirmed ] Levothyroxine TAB* [Synthroid 25 MCG TAB*] 75 mcg PO QAM 07/22/14 [History Confirmed 01/17/20] Amlodipine Besylate [Amlodipine 2.5 mg tab] 5 mg PO DAILY 01/21/17 [History Confirmed 01/17/20] Famotidine TAB* [Pepcid 20 MG TAB*] 1 tab PO DAILY PRN 11/03/17 [History Confirmed 01/17/20] Albuterol HFA INHALER* [Ventolin HFA Inhaler*] 1 puff INH Q4H PRN #1 mdi [Rx Confirmed 01/17/20] Hydrochlorothiazide TAB* [Hydrodiuril TAB*] 12.5 mg PO DAILY 08/31/19 [History Confirmed 01/17/20] Pregabalin 100 mg CAP (*) [Lyrica 100 mg CAP (*)] 100 mg PO TID PRN 12/06/19 [ History Confirmed 01/17/20] Albuterol 2.5MG/3ML (0.083%)* [Ventolin 2.5 MG/3 ML NEB.JULY*] 2.5 mg INH Q4H PRN 01/17/20 [History Confirmed 01/17/20] DOXYcycline CAP(*) [DOXYcycline 100MG CAP(*)] 100 mg PO BID #18 cap 01/17/20 [Rx ] PMH/Surg Hx/FS Hx/Imm Hx - Additional Past Medical History Additional PMH: fibromyalgia Endocrine History: Thyroid Disease Cardiovascular History: Hypertension Respiratory History: Asthma GI/ History: Gastroesophageal Reflux - Surgical History Surgical History: Yes Surgery Procedure, Year, and Place: Sinus, 2007, [facility]. Cholecystectomy, 2004, [facility]. T&A, 1986, [facility] - Family History Known Family History: Positive: Hypertension, Diabetes Negative: Respiratory Disease - Social History Occupation: Disabled Lives: With Family Alcohol Use: Rare Substance Use Type: None Smoking Status (MU): Never Smoked Tobacco Have You Smoked in the Last Year: No Household Exposure Type: Cigarettes - Immunization History Most Recent Influenza Vaccination: 2017 Review of Systems All Other Systems Reviewed And Are Negative: Yes Constitutional: Positive: Fever Skin: Negative: Rash Eyes: Negative: Drainage, Eye Redness ENT: Positive: Sore Throat, Nasal Discharge, Sinus Congestion, Sinus Pain/ Tenderness. Negative: Ear Ache Respiratory: Positive: Shortness Of Breath, Cough Cardiovascular: Negative: Chest Pain Gastrointestinal: Negative: Abdominal Pain, Vomiting, Diarrhea, Nausea Genitourinary: Positive: Negative Musculoskeletal: Positive: Negative Neurological/Mental Status: Positive: Negative Is Patient Immunocompromised?: No Physical Exam - Summary Physical Exam Summary: GENERAL APPEARANCE: Alert and cooperative obese adult female who appears to be in no acute distress. EYES: Conjunctiva clear. No drainage. EARS: External auditory canals and tympanic membranes clear, hearing grossly intact. NOSE: Mild-moderate nasal congestion. No nasal discharge. No sinus tenderness. THROAT: Pharyngeal cobblestoning. Surgically absent tonsils. Uvula midline. NECK: Neck supple, non-tender without lymphadenopathy. CARDIAC: Normal S1 and S2. No S3, S4 or murmurs. Rhythm is regular. There is no peripheral edema, cyanosis or pallor. Extremities are warm and well perfused. Capillary refill is less than 2 seconds. Peripheral pulses intact. LUNGS: Clear to auscultation without rales, rhonchi, wheezing or diminished breath sounds. Cough not observed. ABDOMEN: Positive bowel sounds. Soft, nondistended, nontender. No guarding or rebound. No masses or hepatosplenomegally. SKIN: Skin normal color, texture and turgor with no lesions or eruptions. Triage Information Reviewed: Yes Vital Signs: Initial Vital Signs Temp 99 F 01/17/20 19:29 Pulse 96 01/17/20 19:29 Resp 19 01/17/20 19:29 BP 142/73 01/17/20 19: Pulse Ox 99 01/17/20 19:29 Vital Signs Reviewed: Yes Respiratory Course/Dx - Course Course Of Treatment: 44-year-old female with history of asthma presents with 5-6 day history of subjective fever, nasal congestion, sinus pressure, sore throat, occasionall productive cough for green sputum, shortness of breath, and occasional wheezing. States has been using her albuterol nebulizer or inhaler every 4-6 hours. No known contact with persons isolated for or diagnosed with COVID-19 however did travel to [employer], [place] 01/01-01/04. Patient completed a course of doxycycline for a skin infection on 01/11/2020. She is unsure if it was a 7 or 10 day course. Denies ear pain, dysphagia, chest pain, palpitations, abdominal pain, nausea, vomiting, or diarrhea. Afebrile. Hypertensive otherwise vital signs stable. Patient was placed in isolation and examined using appropriate PPE. On exam she was in no acute distress with mild to moderate nasal congestion, no nasal discharge, no sinus tenderness, normal TMs, pharyngeal cobblestoning, surgically absent tonsils, clear bilateral breath sounds, and otherwise unremarkable exam. Rapid strep test and rapid flu tests were negative. Reviewed results with the patient. Recommended testing for the COVID -19 virus especially considering her reported fever, respiratory issues, and recent travel. A nasopharyngeal swab was collected by myself. Patient was counseled on home isolation using a shared bathroom. Discussed with the patient that with her recent antibiotic use and underlying asthma we will also treat her for a possible bacterial upper respiratory infection with a ten-day course of doxycycline twice a day. The first 2 doses were dispensed for home use as her pharmacy was closed. Additionally recommended symptomatic treatment for a URI. Reiterated to the patient that she would need to remain on home isolation pending the results of the COVID-19 testing. Anticipatory guidance and warning symptoms were reviewed with the patient. Verbalizes understanding and agrees with plan of care. - Differential Dx/Diagnosis Differential Diagnosis/HQI/PQRI: Asthma, Bronchitis, Influenza, Lower Resp Infection, SARS - COVID-19, Sinusitis Provider Diagnosis: Upper respiratory infection with cough and congestion, Asthma Discharge ED - Sign-Out/Discharge Documenting (check all that apply): Patient Departure All imaging exams completed and their final reports reviewed: No Studies - Discharge Plan Condition: Stable Disposition: HOME Prescriptions: DOXYcycline CAP(*) [DOXYcycline 100MG CAP(*)] 100 mg PO BID #18 cap Patient Education Materials: Asthma (ED), Upper Respiratory Infection (ED) Forms: COVID-19 Tested & Isolation Referrals: Adelita Martinez MD [Primary Care Provider] - Additional Instructions: The rapid strep test and rapid flu test performed in the clinic today were negative. With a reported history of fever, cough, shortness of breath, and recent travel I am recommending that we test you for the COVID-19 virus. You will need to remain on home isolation pending the results of this testing. Please refer to the COVID-19 tested in isolation instructions. Your history and exam are consistent with a viral upper respiratory infection. Viral infections do not respond to antibiotics and are limited to the treatment of symptoms. Viral infections typically run their course in 7-10 days. Drink plenty of fluids to avoid dehydration especially if you are running any fever. Use a saline rinse kit such as Neti Pot or NeilMed at least twice a day to help thin secretions and promote drainage of the sinuses. Use fluticasone (Flonase) nasal spray 2 sprays each nostril once daily. Take over the counter acetaminophen (Tylenol) according to directions as needed for pain or fever. You should avoid use of ibuprofen at this time as there is evidence that this may worsen symptoms in COVID-19 infections. Use salt water gargles several times a day if you have a sore throat. You may also use Chloraseptic spray or Cepacol lonzenges according to directions which contain a numbing medication and can provide some temporary relief from your sore throat. Continued to use you are inhalers as directed for any shortness of breath or wheezing. Seek immediate medical attention in the emergency room if you have fever greater than 100.5 F despite taking acetaminophen or ibuprofen, have chest pain , difficulty breathing, are unable to swallow, or have any worsening of symptoms. - Billing Disposition and Condition Condition: STABLE Disposition: Home - Attestation Statements Provider Attestation: This patient was not seen by me. I was available for consult. Chart reviewed. DOT
[2020-01-17] MEDS ORDERED: DOXYcycline CAP(*) 100 MG PO ONE (20:07)
--- NOTE | 2020-01-22 07:45 | UC ---
- Progress Note Progress Note: Your coronavirus test was negative You no longer need to self quarantine REcommend continue to self distance If you are still having symptoms or feeling worse, recommend follow up with your PCP or return to urgent care Course/Dx - Diagnoses Provider Diagnoses: Upper respiratory infection with cough and congestion, Asthma Discharge ED - Sign-Out/Discharge Documenting (check all that apply): Post-Discharge Follow Up All imaging exams completed and their final reports reviewed: No Studies - Discharge Plan Condition: Stable Disposition: HOME Prescriptions: DOXYcycline CAP(*) [DOXYcycline 100MG CAP(*)] 100 mg PO BID #18 cap Patient Education Materials: Asthma (ED), Upper Respiratory Infection (ED) Referrals: Adelita Martinez MD [Primary Care Provider] - Additional Instructions: Your history and exam are consistent with a viral upper respiratory infection. Viral infections do not respond to antibiotics and are limited to the treatment of symptoms. Viral infections typically run their course in 7-10 days. Drink plenty of fluids to avoid dehydration especially if you are running any fever. Use a saline rinse kit such as Neti Pot or NeilMed at least twice a day to help thin secretions and promote drainage of the sinuses. Use fluticasone (Flonase) nasal spray 2 sprays each nostril once daily. Take over the counter acetaminophen (Tylenol) according to directions as needed for pain or fever. You should avoid use of ibuprofen at this time as there is evidence that this may worsen symptoms in COVID-19 infections. Use salt water gargles several times a day if you have a sore throat. You may also use Chloraseptic spray or Cepacol lonzenges according to directions which contain a numbing medication and can provide some temporary relief from your sore throat. Continued to use you are inhalers as directed for any shortness of breath or wheezing. Seek immediate medical attention in the emergency room if you have fever greater than 100.5 F despite taking acetaminophen or ibuprofen, have chest pain , difficulty breathing, are unable to swallow, or have any worsening of symptoms. - Billing Disposition and Condition Condition: STABLE Disposition: Home
== END 2020-01-17 20:22 | disposition home or self-care (01) ==
LOC: UCCORT 18:53
DX: J06.9 Acute upper respiratory infection, unspecified (principal); R05 Cough; R09.89 Other specified symptoms and signs involving the circulatory and respiratory systems; J45.909 Unspecified asthma, uncomplicated; Z20.828 Contact with and (suspected) exposure to other viral communicable diseases; M79.7 Fibromyalgia; E07.9 Disorder of thyroid, unspecified; I10 Essential (primary) hypertension; Z79.890 Hormone replacement therapy; Z79.899 Other long term (current) drug therapy; Z88.1 Allergy status to other antibiotic agents; Z91.013 Allergy to seafood
CPT/HCPCS: 87651; 99212; A9270-GY; G0463; U0002